=== PATIENT | male | born 1985 | race Caucasian/White ===

== ENCOUNTER 2018-01-10 09:32 | Emergency (ER) | payer SELFPAY | END 2018-01-10 11:04 | disposition home or self-care (01) | LOC: ER 11:04 | DX: T23.212A Burn of second degree of left thumb (nail), initial encounter (principal); X15.2XXA Contact with hotplate, initial encounter; Y93.G3 Activity, cooking and baking; Y99.8 Other external cause status; Y92.89 Other specified places as the place of occurrence of the external cause | CPT/HCPCS: 16020; 99284 ==